=== PATIENT | female | born 1975 | race Asian ===

== ENCOUNTER 2023-01-09 14:42 | Outpatient (CLI) | payer OTHER ==
[2023-01-09 15:36] LABS: PLATELET COUNT 170 K/uL (152-353)
[2023-01-10] MEDS ORDERED: PROTONIX20 MG PO (09:51)
[2023-01-10] MEDS ORDERED: GLIPIZIDE ER PO (09:51)
[2023-01-10] MEDS ORDERED: MECLIZINE25 MG PO (09:52)
[2023-01-10] MEDS ORDERED: ONDANSETRON ODT PO (09:52)
[2023-01-10] MEDS ORDERED: LISITAB PO (09:53)
== END 2023-01-09 19:17 | disposition home or self-care (01) ==
LOC: LABW 14:42
PROVIDERS: ATTEND Nurse Practitioner Family
DX: D64.89 Other specified anemias (principal); E11.9 Type 2 diabetes mellitus without complications; Z79.899 Other long term (current) drug therapy
CPT/HCPCS: 36415; 83036; 85007; 85027

== ENCOUNTER 2023-01-09 16:03 | Observation (INO) | payer OTHER ==
[~2023-01-09] VITALS: Ht 152.4 cm; Wt 111.2 kg
[2023-01-09] VITALS (9 sets, daily range): BP systolic 105–144; BP diastolic 54–77; TEMP 98–98.5; Ht 152.4 cm; Wt 111.2 kg
[2023-01-09 17:16] LABS: PLATELET COUNT 202 K/uL (152-353)
[2023-01-09 17:23] LABS: POTASSIUM 3.2 mmol/L (3.6-5.2)
[2023-01-10] VITALS (10 sets, daily range): BP systolic 109–147; BP diastolic 55–76; TEMP 98–98.6
[2023-01-10] MEDS ORDERED: PROTONIX20 MG PO (09:51)
[2023-01-10] MEDS ORDERED: GLIPIZIDE ER PO (09:51)
[2023-01-10] MEDS ORDERED: ONDANSETRON ODT PO (09:52)
[2023-01-10] MEDS ORDERED: MECLIZINE25 MG PO (09:52)
[2023-01-10] MEDS ORDERED: LISITAB PO (09:53)
[2023-01-10 10:21] LABS: PLATELET COUNT 164 K/uL (152-353)
== END 2023-01-10 11:25 | disposition home or self-care (01) ==
LOC: ED 16:03 → MED/SURG 17:44
PROVIDERS: Family Medicine; ADMIT Internal Medicine Endocrinology, Diabetes & Metabolism; ATTEND Internal Medicine Endocrinology, Diabetes & Metabolism
DX: D64.89 Other specified anemias (principal); E66.01 Morbid (severe) obesity due to excess calories; I10 Essential (primary) hypertension; E11.9 Type 2 diabetes mellitus without complications; Z68.42 Body mass index [BMI] 45.0-49.9, adult
CPT/HCPCS: 36415; 36430; 80053; 82607; 82747; 82948; 83540; 84484; 84702; 85027; 86850; 86900; 86901; 86922; 93005; 99221; 99284; G0378; J3420; P9016